=== PATIENT | female | born 2000 | race Caucasian/White ===

== ENCOUNTER 2019-02-10 10:21 | Outpatient (CLI) | payer OTHER ==
[2019-02-10 11:55] LABS: ALT 20 U/L (9-52); AST 17 U/L (14-36); African American GFR (CKD) >90 (>60 ml/min/1.73 sqM); Blood Urea Nitrogen 9 mg/dL (7-17); LDH 506 U/L (313-618); Uric Acid 4.8 mg/dL (3.7-7.4)
[2019-02-10 11:57] LABS: Basophils % (A) 0 %; Eosinophils # (A) 0.1 k/uL (0-0.7); Eosinophils % (A) 1 %; HGB 11.7 gm/dL (11.4-16.0); Lymphocytes # (A) 1.5 k/uL (1.0-4.8); Lymphocytes % (A) 14 %; MCH 30.7 pg (25.0-35.0); MCHC 35.4 g/dL (31.0-37.0); MCV 86.8 fL (80.0-100.0); Mean Platelet Volume 8.2; Monocytes # (A) 0.3 k/uL (0-1.0); Monocytes % (A) 3 %; Neutrophils # (A) 8.9 k/uL (1.3-7.7); Neutrophils % (A) 82 %; Platelet Count 228 k/uL (150-450); RDW 15.2 % (11.5-15.5); WBC 10.9 k/uL (4.0-11.0)
[2019-02-10 11:59] LABS: Appearance,Urine Clear (Clear); Bilirubin,Urine Negative (Negative); Blood,Urine Negative (Negative); Color,Urine Light Yellow; Glucose,Urine (UA) Negative (Negative); Ketones,Urine Negative (Negative); Leukocyte Esterase,Urine Negative (Negative); Nitrite,Urine Negative (Negative); Protein,Urine Negative (Negative); Specific Gravity,Urine 1.005 (1.001-1.035); Urobilinogen,Urine <2.0 mg/dL (<2.0)
--- NOTE | 2019-03-10 17:43 | P.MSEPDOC ---
Presenting Problems - Arrival Data Date of Arrival on Unit: 02/10/19 Time of Arrival on Unit: 10:21 Mode of Transport: Ambulatory Disposition - Disposition Discharge Date: 02/10/19 Discharge Time: 12:40 I agree with the RN Medical Screening Exam: No Physician's MSE Comment: There is incomplete nursing documentation on this document and therefore I cannot agree to it. Risk & Benefit of care provided described in d/c instruction: No Diagnosis: RELATED CONDITIONS, UNSP, UNSPECIFIED TRIMESTER
== END 2019-02-10 12:40 | disposition home or self-care (01) ==
LOC: FBPOP 10:21
PROVIDERS: ATTEND Obstetrics & Gynecology
DX: O26.93 Pregnancy related conditions, unspecified, third trimester (principal); Z3A.34 34 weeks gestation of pregnancy
CPT/HCPCS: 59025; 82731; 82570; 84156; 82565; 83615; 84450; 84460; 84520; 84550; 85025; 81003; G0463; 99213

== ENCOUNTER 2019-02-28 12:51 | Inpatient (IN) | payer OTHER ==
[2019-02-28 13:57] VITALS: BMI 36.8
[2019-02-28 14:13] LABS: Appearance,Urine Clear (Clear); Bilirubin,Urine Negative (Negative); Blood,Urine Negative (Negative); Color,Urine Light Yellow; Glucose,Urine (UA) Negative (Negative); Ketones,Urine Negative (Negative); Leukocyte Esterase,Urine Negative (Negative); Nitrite,Urine Negative (Negative); PH, Urine 6.5 (5.0-8.0); Protein,Urine Negative (Negative); Specific Gravity,Urine 1.006 (1.001-1.035); Urobilinogen,Urine <2.0 mg/dL (<2.0)
[2019-02-28 14:15] LABS: Basophils % (A) 0 %; Eosinophils # (A) 0.1 k/uL (0-0.7); Eosinophils % (A) 1 %; HCT 31.7 % (34.0-46.0); HGB 11.4 gm/dL (11.4-16.0); Lymphocytes # (A) 1.1 k/uL (1.0-4.8); Lymphocytes % (A) 12 %; MCH 30.8 pg (25.0-35.0); MCHC 35.9 g/dL (31.0-37.0); Mean Platelet Volume 8.3; Monocytes # (A) 0.3 k/uL (0-1.0); Monocytes % (A) 3 %; Neutrophils # (A) 7.7 k/uL (1.3-7.7); Neutrophils % (A) 83 %; Platelet Count 220 k/uL (150-450); RBC 3.69 m/uL (3.80-5.40); RDW 15.8 % (11.5-15.5); WBC 9.2 k/uL (4.0-11.0)
[2019-02-28 14:23] LABS: ALT 25 U/L (9-52); AST 23 U/L (14-36); African American GFR (CKD) >90 (>60 ml/min/1.73 sqM); Blood Urea Nitrogen 7 mg/dL (7-17); LDH 484 U/L (313-618); Uric Acid 5.3 mg/dL (3.7-7.4)
--- NOTE | 2019-02-28 22:38 | HP ---
HISTORY AND PHYSICAL DATE OF ADMISSION: 02/28/2019 PRINCIPAL DIAGNOSIS: Gestational hypertension. HISTORY OF PRESENT ILLNESS: This 18-year-old G1, P0, at 36 weeks 5 days gestation arrives complaining of fatigue and nonstress test for her preeclampsia. NST was reactive and there were no issues with it. However, her blood pressures have all been mildly elevated. As she is not 37 weeks, a decision to observe her and rule out preeclampsia has been made with the understanding that since she is already scheduled for induction on Thursday, the decision on whether or not to discharge her or keep her will be made once the 24 hour urine is back. Lab studies otherwise were unremarkable for her preeclampsia workup. MMODL / IJN: [id number] /
--- NOTE | 2019-02-28 22:44 | HP ---
HISTORY AND PHYSICAL ADDENDUM: Laboratory studies from her preeclamptic workup have been unremarkable with normal AST, ALT, lactate dehydrogenase. Platelets are also normal and there is no protein in the urine, signifying most likely gestational hypertension. We will plan since she did have an elevated protein creatinine ratio in a previous admission, to continue with 24 hour urine with expectation that she will if all goes well, likely be able to go home tomorrow prior to her induction. However, should she have any change in her symptomatology, indicating more severe complexity to the disease, we will plan induction. PERTINENT PAST MEDICAL HISTORY: Unremarkable. 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 ALLERGIES: None. SOCIAL HISTORY: Unremarkable. FAMILY HISTORY: Noncontributory. In reviewing her records, however, it is noted that she has asthma and a heart murmur that she has not related to any in our interview. PHYSICAL EXAM: Vital signs other than mild elevation of blood pressure, stable. Last blood pressure is 140/94. She has had several blood pressures minimally elevated in the 140/90 range. Heart regular. Lungs clear. Extremities without pain. Abdomen soft. Gravid uterus is noted. A category 1 tracing had been noted earlier and there are rare contractions. Extremities are without pain. ASSESSMENT: Intrauterine at 36 weeks 5 days with gestational hypertension. PLAN: Observational care with 24 hour urine. MMODL / IJN: [id number] /
--- NOTE | 2019-03-01 11:47 | P.PN ---
Progress Note - Text Progress Note Date: 03/01/19 Patient is doing overall well this morning. Her blood pressures remained mildly elevated and a 24-hour urine is still pending. 24 urine will not be up until late this afternoon earlier this evening after does fully run and as she lives over an hour away we'll plan to just keep her tonight with induction in the morning due to continued elevations in blood pressure. All questions are answered for her at this time. On physical exam heart regular, lungs clear, extremities without pain. Abdomen is soft and gravid uterus is noted. Sarah 1 tracings have been reported. Assessment intrauterine [place] 36 weeks 6 days. Gestational hypertension versus preeclampsia. Plan induction in a.m.
[2019-03-02] MEDS ORDERED: TERBUTALINE 1 MG/ML VIAL SQ PRN (01:58)
[2019-03-02] MEDS ORDERED: LIDOCAINE 1% 20 ML VIAL (10MG/ML) FOR IV START INTRADERMA PRN (01:58)
[2019-03-02] MEDS ORDERED: CARBOPROST TROMETHAMINE 250 MCG/ML 1 ML AMP IM PRN (01:58)
[2019-03-02] MEDS ORDERED: OXYTOCIN 30 UNITS/500 ML NS 30 UNIT in SALINE 1 500ML.BAG IV SCH (01:58)
[2019-03-02] MEDS ORDERED: OXYTOCIN 10 UNIT/ML 1 ML VIAL IM PRN (01:58)
[2019-03-02] MEDS ORDERED: METHYLERGONOVINE 0.2 MG/ML 1 ML AMP IM PRN (01:58)
[2019-03-02] MEDS ORDERED: LIDOCAINE 0.5% (PF) 5 MG/ML (50 ML SDV) SQ PRN (01:58)
[2019-03-02] MEDS: LACTATED RINGERS 1,000 ML IV SCH ×2 (05:59→11:13)
[2019-03-02] MEDS ORDERED: BUTORPHANOL 1 MG/ML 1 ML VIAL IV PRN (16:47)
[2019-03-02] MEDS ORDERED: BENZOCAINE/MENTHOL SPRAY 1 GM/SPRAY AEROSOL TOPICAL PRN (17:06)
[2019-03-02] MEDS ORDERED: LANOLIN CREAM 5 GM TUBE TOPICAL PRN (17:06)
[2019-03-02] MEDS ORDERED: WITCH HAZEL 1 EACH MED..PAD TOPICAL PRN (17:06)
[2019-03-02] MEDS ORDERED: diphenhydrAMINE 50 MG/ML 1 ML VIAL IVP PRN ×2 (17:06)
[2019-03-02] MEDS ORDERED: diphenhydrAMINE 50 MG CAP PO PRN (17:06)
[2019-03-02] MEDS ORDERED: SIMETHICONE 80 MG CHEWABLE PO PRN (17:06)
[2019-03-02] MEDS ORDERED: ZOLPIDEM 5 MG TAB PO PRN (17:06)
[2019-03-02] MEDS ORDERED: HYDROCORTISONE 2.5% RECTAL CREAM 30 GM TUBE RECTAL PRN (17:06)
[2019-03-02] MEDS ORDERED: OXYTOCIN 20 UNITS/1000 ML NS 1,000 ML IV SCH (17:06)
[2019-03-02] MEDS ORDERED: diphenhydrAMINE 25 MG CAP PO PRN (17:06)
[2019-03-02] MEDS ORDERED: MEASLES-MUMPS-RUBELLA VACC/PF 12,500 UNIT/0.5 ML VIAL SQ ONE (17:06)
[2019-03-02] MEDS: IBUPROFEN 600 MG TAB PO PRN ×2 (17:36→23:48)
[2019-03-02] MEDS: SENNOSIDES-DOCUSATE SODIUM 1 EACH TAB PO SCH ×2 (20:15→20:43)
[2019-03-02] MEDS: ACETAMINOPHEN TAB 325 MG TAB PO PRN (20:44)
[2019-03-02 20:49] LABS: Basophils % (A) 0 %; Eosinophils % (A) 0 %; HCT 27.3 % (34.0-46.0); Lymphocytes # (A) 0.8 k/uL (1.0-4.8); Lymphocytes % (A) 4 %; MCH 30.2 pg (25.0-35.0); MCHC 34.7 g/dL (31.0-37.0); Mean Platelet Volume 8.5; Monocytes # (A) 0.5 k/uL (0-1.0); Monocytes % (A) 3 %; Neutrophils # (A) 15.9 k/uL (1.3-7.7); Neutrophils % (A) 92 %; Platelet Count 237 k/uL (150-450); RBC 3.13 m/uL (3.80-5.40); RDW 14.8 % (11.5-15.5); WBC 17.3 k/uL (4.0-11.0)
[2019-03-02 21:05] LABS: HGB 9.4 gm/dL (11.4-16.0)
[2019-03-03] MEDS: ACETAMINOPHEN TAB 325 MG TAB PO PRN ×3 (03:15→18:14)
--- NOTE | 2019-03-03 07:14 | LDN ---
LABOR AND DELIVERY NOTE VAGINAL DELIVERY NOTE: DATE OF DELIVERY: 03/02/2019. The patient progressed to complete dilation after oxytocin induction of labor and artificial rupture of membranes with clear fluid noted. She did not require any pain medication during her delivery or her labor. Once reaching complete dilation, she began pushing. She pushed for a short while and brought head to a crown. With 1 further push, the infant's head delivered across the perineum followed by the anterior shoulder. Nose and mouth were bulb suctioned at the perineum. With one further push, the remainder of the easily delivered and was placed on mother's abdomen. Cord was clamped and cut and infant was taken to warmer for evaluation. A viable female was noted with scores of 9 at 1 minute and 9 at 5 minutes and infant weight was noted to be 7 pounds 4.8 ounces. Placenta delivered shortly thereafter, intact, with a three-vessel cord. Uterus initially did not contract well after oxytocin was given and uterine massage was carried out. A gloved hand was placed within the intrauterine cavity and no further blood clot or placental tissue was palpated. A right-angled speculum was then placed in the vagina to visualize where the bleeding was coming from. It appeared that she did have a left vaginal sulcus laceration that was noted to be pumping up near the cervical area. With assistance from nursing staff for retraction, and using suction from the wall, we were able to visualize the area and I was able to stitch this using 2-0 Vicryl suture in a running locked fashion. Once this was completely hemostatic, the remainder of the perineum was inspected and there was a small first-degree perineal laceration. This area was anesthetized with 1% lidocaine and sutured with 3-0 Vicryl suture in a running locked fashion. Total estimated blood loss was approximately 1000 mL. All sponge counts were correct. All needle counts were correct. The patient is in stable condition after delivery. She will be watched closely for any signs of dizziness, shortness of breath, or lightheadedness. She is advised to let us know if she does start to experience any of these symptoms. Will recheck CBC in the a.m. Will monitor closely. The patient was induced for preeclampsia. Her blood pressures have been stable throughout the day. She has not required any medication for severe blood pressures. MMODL / IJN: [id number] /
[2019-03-03 07:36] LABS: Basophils % (A) 0 %; Eosinophils % (A) 0 %; Lymphocytes # (A) 1.4 k/uL (1.0-4.8); Lymphocytes % (A) 14 %; MCH 29.9 pg (25.0-35.0); MCHC 34.8 g/dL (31.0-37.0); MCV 85.9 fL (80.0-100.0); Monocytes # (A) 0.6 k/uL (0-1.0); Monocytes % (A) 5 %; Neutrophils # (A) 8.3 k/uL (1.3-7.7); Neutrophils % (A) 79 %; Platelet Count 196 k/uL (150-450); RBC 2.56 m/uL (3.80-5.40); RDW 13.8 % (11.5-15.5); WBC 10.4 k/uL (4.0-11.0)
[2019-03-03 07:45] LABS: HGB 7.6 gm/dL (11.4-16.0)
[2019-03-03] MEDS: IBUPROFEN 600 MG TAB PO PRN ×3 (09:03→21:38)
[2019-03-03] MEDS: SENNOSIDES-DOCUSATE SODIUM 1 EACH TAB PO SCH ×2 (09:04→21:38)
--- NOTE | 2019-03-03 09:19 | P.PNOBGVD ---
Subjective - Subjective Principal diagnosis: Status post vaginal delivery day #1 Interval history: Patient is doing better today than she was last night. She denies any dizziness or lightheadedness this morning. She has sore on her bottom and does feel swollen on her labia. She also complains of some tailbone pressure. Lochia is decreasing. Her pain is fairly well controlled with ibuprofen. Patient reports: Reports appetite normal, Reports voiding normally, Reports pain well controlled, Reports ambulating normally : doing well, nursing well Objective - Latest Vital Signs Latest vital signs: Vital Signs Temp Pulse Resp BP Pulse Ox 03/03/19 08:42 98.2 F 91 16 130/70 99 03/03/19 03:51 99.0 F 98 16 132/74 99 03/03/19 00:00 99.7 F H 129 H 18 128/79 98 03/02/19 20:30 116 H 16 134/79 99 03/02/19 20:00 97.6 F 128 H 16 133/82 98 03/02/19 19:00 129 H 16 115/59 03/02/19 18:30 113 H 16 113/55 03/02/19 18:00 116 H 16 119/58 03/02/19 17:45 97.9 F 126 H 16 116/60 03/02/19 17:30 136 H 16 117/55 03/02/19 17:15 146 H 16 125/91 97 03/02/19 17:00 97.8 F 144 H 16 129/86 97 Intake and Output 03/02/19 03/03/19 03/03/19 22:59 06:59 14:59 Output Total 1999 950 Balance -2000 -950 Output: Urine 950 Estimated Blood Loss 2000 Other: # Voids 1 - Exam Abdomen: Present: normal appearance, soft. Absent: distention, tenderness Uterus: Present: normal, firm. Absent: tenderness Comments: Left vulva is slightly swollen but soft. Mild tenderness is noted near her tailbone. - Labs Labs: Abnormal Lab Results - Last 24 Hours (Table) 03/02/19 03/03/19 Range/Units 20:20 06:26 WBC 17.3 H (4.0-11.0) k/uL RBC 3.13 L 2.56 L (3.80-5.40) m/uL Hgb 9.4 L D 7.6 L D (11.4-16.0) gm/dL Hct 27.3 L 22.0 L (34.0-46.0) % Neutrophils # 15.9 H 8.3 H (1.3-7.7) k/uL Lymphocytes # 0.8 L (1.0-4.8) k/uL
--- NOTE | 2019-03-03 09:42 | P.MSEPDOC ---
Presenting Problems - Arrival Data Date of Arrival on Unit: 02/28/19 Time of Arrival on Unit: 13:25 Mode of Transport: Ambulatory - Complaint OB-Reason for Admission/Chief Complaint: NST Medical History - Information : 1 Para: 0 Term: 0 : 0 Abortions: Spontaneous or Elective: 0 Number of Living Children: 0 - Gestational Age Gestational Age by SUZI (wks/days): 37 Weeks and 1 Days - History Comment: here for PI Review of Systems - Review of Systems Constitutional: No problems Breast: No problems ENT: No problems Cardiovascular: No problems Respiratory: No problems Gastrointestinal: No problems Genitourinary: No problems Musculoskeletal: No problems Neurological: No problems Skin: No problems Vital Signs - Temperature Temperature: 98.2 F Temperature Source: Oral - Pulse Brachial Pulse Rate: 91 Pulse Assessment Method: Automatic Cuff - Respirations Respiratory Rate: 16 Oxygen Delivery Method: Room Air O2 Sat by Pulse Oximetry: 99 - Blood Pressure Right Arm Sitting Blood Pressure: 130/70 Blood Pressure Mean: 90 Blood Pressure Source: Automatic Cuff Medical Screen Scoring (Pre) - Cervical Exam Dilation: Exam Deferred Effacement: Exam Deferred Membranes: Intact - Uterine Contractions Frequency: > 5 minutes apart = 1 Duration: N/A Intensity: N/A - Maternal Vital Signs Maternal Temperature: N/A Maternal Blood Pressure: N/A Signs of Preeclampsia: N/A Maternal Respirations: N/A - Maternal Trauma Maternal Trauma: N/A - Assessment - Baby A Baseline FHR: 135 Heart Rate - NICHD Category: Category I (Normal) = 0 NST: Reactive Position: N/A Station: N/A - Total Score - Baby A Total Score - Baby A: 1 - Total Score - Baby B Total Score - Baby B: 1 - Total Score - Baby C Total Score - Baby C: 1 - Level of Risk - Baby A Level of Risk - Baby A: Low (0-5) - Level of Risk - Baby B Level of Risk - Baby B: Low (0-5) - Level of Risk - Baby C Level of Risk - Baby C: Low (0-5) Physician Notification (Pre) - Physician Notified Physician Notified Date: 02/28/19 Physician Notified Time: 13:25 Spoke With: Dr flores - Notification Comment Comment: reported reactive NST, pt here due to mild pre-eclampsia per Dr Stock and bp's. orders received to admit pt for 24hr urine per t.oTommie Flores Disposition - Disposition OB Disposition: Admit, LDRP Suite Discharge Date: 02/28/19 Discharge Time: 13:25 I agree with the RN Medical Screening Exam: Yes Risk & Benefit of care provided described in d/c instruction: Yes Diagnosis: GESTATIONAL HTN W/O SIGNIFICANT PROTEINURIA, THIRD TRIMESTER
[2019-03-04 01:33] VITALS: RESP 18
[2019-03-04 06:46] LABS: Basophils % (A) 0 %; Eosinophils # (A) 0.1 k/uL (0-0.7); Eosinophils % (A) 1 %; HCT 21.5 % (34.0-46.0); HGB 7.6 gm/dL (11.4-16.0); Lymphocytes % (A) 23 %; MCH 30.6 pg (25.0-35.0); MCHC 35.2 g/dL (31.0-37.0); MCV 86.9 fL (80.0-100.0); Mean Platelet Volume 7.4; Monocytes # (A) 0.4 k/uL (0-1.0); Monocytes % (A) 4 %; Neutrophils # (A) 6.3 k/uL (1.3-7.7); Neutrophils % (A) 70 %; Platelet Count 196 k/uL (150-450); RBC 2.47 m/uL (3.80-5.40); RDW 14.3 % (11.5-15.5)
[2019-03-04] MEDS: SENNOSIDES-DOCUSATE SODIUM 1 EACH TAB PO SCH (07:56)
[2019-03-04] MEDS: IBUPROFEN 600 MG TAB PO PRN (07:56)
--- NOTE | 2019-03-04 08:49 | P.DS ---
Providers Date of admission: 02/28/19 13:42 Expected date of discharge: 03/04/19 Attending physician: Shannan Stock Primary care physician: Stated None Hospital Course: This is a 18-year-old female 1 para 0 who initially presented at 36-5/7 weeks with elevated blood pressures for NST. She was admitted and observed overnight and did undergo a 24 hour urine collection which was slightly over 300 mg of protein in 24 hours. Her blood pressures remained in the mild category in the 140s to 150s over 70s to 80s to 90s. She denied any other symptoms. She underwent oxytocin induction of labor on 03/02/2019. She delivered a viable female with scores of 9 at 1 minute and 9 at 5 minutes and weight of 7 pounds 4.8 ounces. She did have a severe left vaginal wall sulcus tear that did cause a significant amount of bleeding after delivery. She had almost 1000 mL of blood loss. Her hemoglobin did drop from 11.4-7.6 but has been stable at 7.6. She is currently asymptomatic and denies any dizziness, shortness of breath, or nausea. She does complain of some tailbone pain and soreness on her vaginal area. She has been using ibuprofen with good results. She is breast-feeding and does have a breast pump. Vital signs are stable. Abdomen is soft with fundus firm and nontender. Extremities show negative Homans. Tailbone is mildly tender more towards the right side. No ecchymosis is visualized. Her left labia does appear less swollen today than yesterday. Impression is status post vaginal delivery day #2. Plan is to discharge home today. She is advised to continue her vitamins and also iron supplements. She is advised to follow up in the office in approximately 1 week for a blood pressure check and follow-up exam. She is advised to call the office if she has any further questions or concerns prior to her appointment time. Procedures: Oxytocin induction of labor Spontaneous vaginal delivery of a viable female infant on 03/02/2019 Patient Condition at Discharge: Stable Plan - Discharge Summary New Discharge Prescriptions: No Action Pnv No.95/Ferrous Fum/Folic AC [ Multivitamin Tablet] 1 tab PO DAILY Discharge Medication List Pnv No.95/Ferrous Fum/Folic AC [ Multivitamin Tablet] 1 tab PO DAILY 02/10/19 [History] Follow up Appointment(s)/Referral(s): Shannan Stock DO [Doctor of Osteopathic Medicine] - 1 Week Activity/Diet/Wound Care/Special Instructions: Instructions 1. Do not begin any exercise program for 3 weeks. 2. Do not resume sexual relations for 3 weeks or longer if uncomfortable. 3. You may take tub baths or showers at any time. 4. You may use tampons if desired after 3 weeks. 5. Keep the area of episiotomy (stitches) clean and dry. 6. If you are not nursing, wear a good fitting, supportive bra during the day and limit fluid intake for at least 1 week to prevent breast engorgement. 7. Call the office, [phone], within the next week to make appointment for your 6 week checkup if it has not already been made. 8. Report any of the following occurrences to the doctor promptly: a. Heavy, excessive bleeding b. Chills, fever c. Burning or frequency of urination d. Pain or redness and breasts if nursing e. Increasing pain or swelling in episiotomy (stitches). In addition to the above instructions, the following additional should be followed: 1. No heavy lifting or straining (exercising) until after 6 week checkup. 2. Keep abdominal incision clean and dry: You may wear a dressing if more comfortable. 3. Make office appointment for 10 days after going home or as instructed by her doctor. Discharge Disposition: HOME SELF-CARE
[2019-03-04 08:58] VITALS: BP 131/74; PULSE 92; TEMP 98
[2019-03-04] MEDS ORDERED: PRENATAL VIT-IRON-FOLIC ACID 1 EACH CAP PO SCH (09:00)
[2019-03-04] MEDS ORDERED: IRON PS CMPLX/VIT B12/FA 1 EACH CAP PO SCH (12:00)
== END 2019-03-04 12:42 | disposition home or self-care (01) | DRG 807 ==
LOC: FBPOP 12:51 → 4FBP 13:42
PROVIDERS: ADMIT Obstetrics & Gynecology; ATTEND Obstetrics & Gynecology
PROC: 10E0XZZ Delivery of Products of Conception, External Approach (ICD-10-PCS; principal; 2019-03-02)
PROC: 0KQM0ZZ Repair Perineum Muscle, Open Approach (ICD-10-PCS; 2019-03-02)
PROC: 10907ZC Drainage of Amniotic Fluid, Therapeutic from Products of Conception, Via Natural or Artificial Opening (ICD-10-PCS; 2019-03-02)
PROC: 3E033VJ Introduction of Other Hormone into Peripheral Vein, Percutaneous Approach (ICD-10-PCS; 2019-03-02)
DX: O14.94 Unspecified pre-eclampsia, complicating childbirth (principal); Z37.0 Single live birth; O13.4 Gestational [pregnancy-induced] hypertension without significant proteinuria, complicating childbirth; O99.52 Diseases of the respiratory system complicating childbirth; O99.42 Diseases of the circulatory system complicating childbirth; O71.4 Obstetric high vaginal laceration alone; J45.909 Unspecified asthma, uncomplicated; R01.1 Cardiac murmur, unspecified; Z3A.36 36 weeks gestation of pregnancy
CPT/HCPCS: 59025; 81003; 81050; 82565; 82570; 83615; 84156; 84450; 84460; 84520; 84550; 85025; 86850; 86900; 86901; 88307; 90707; 99215

== ENCOUNTER 2022-04-08 19:44 | Outpatient (CLI) | payer OTHER ==
[2022-04-18 08:19] VITALS: BP 153/92
--- NOTE | 2022-04-25 08:58 | P.MSEPDOC ---
Presenting Problems - Arrival Data Date of Arrival on Unit: 04/08/22 Time of Arrival on Unit: 19:42 Mode of Transport: Ambulatory - Complaint OB-Reason for Admission/Chief Complaint: Possible Onset of Labor Medical History - Information : 2 Para: 1 Number of Living Children: 1 - Gestational Age Gestational Age by SUZI (wks/days): 36 Weeks and 3 Days Review of Systems - Review of Systems Constitutional: No problems Breast: No problems ENT: No problems Cardiovascular: No problems Respiratory: No problems Gastrointestinal: No problems Genitourinary: No problems Musculoskeletal: No problems Neurological: No problems Skin: No problems Comment: Assessment completed by Shelbi Vickers RN Vital Signs - Blood Pressure Right Arm Supine Blood Pressure: 153/92 Blood Pressure Mean: 112 Blood Pressure Source: Automatic Cuff Medical Screen Scoring - Cervical Exam Dilation (cm): 3 Effacement (%): 70 Station: -2 Membranes: Intact - Uterine Contractions Frequency From (mins): 2 Frequency To (mins): 3 Duration From (seconds): 40 Duration To (seconds): 100 Intensity: Mild Resting: Soft to palpation - Assessment - Baby A Baseline FHR: 130 Heart Rate - NICHD Category: Category I (Normal) NST: Reactive Physician Notification - Physician Notified Physician Notified Date: 04/08/22 Physician Notified Time: 21:12 Physician: Shannan Stock Order Received: Yes - Notification Comment Comment: Discharge to home return if contractions get stronger Maternal Triage Index - Maternal Triage Index Presenting for scheduled procedure w/no complaint: No - Stat/Priority 1 Stat Priority 1: No - Urgent/Priority 2 Urgent Priority 2: No - Prompt/Priority 3 Prompt Priority 3: Yes Criteria Met for Priority 3: 2nd BP 141/87, then 135/79 Disposition - Disposition OB Disposition: Discharge to home Discharge Date: 04/08/22 Discharge Time: 21:23 I agree with the RN Medical Screening Exam: Yes Case reviewed; plan agreed upon as documented in EMR&OBIX.: Yes Diagnosis: FALSE LABOR BEFORE 37 COMPLETED WEEKS OF GEST, THIRD TRI
== END 2022-04-08 21:23 | disposition home or self-care (01) ==
LOC: FBPOP 19:44
PROVIDERS: ATTEND Obstetrics & Gynecology
DX: O47.03 False labor before 37 completed weeks of gestation, third trimester (principal); Z3A.36 36 weeks gestation of pregnancy
CPT/HCPCS: 59025; G0463; 99213

== ENCOUNTER → 2022-04-10 | Outpatient (CLI) | payer OTHER ==
[~2022-04-10] MED LIST: LACTATED RINGERS 1,000 ML IV SCH
[2022-04-10 16:44] LABS: Appearance,Urine Clear (Clear); Bilirubin,Urine Negative (Negative); Blood,Urine Negative (Negative); Color,Urine Light Yellow; Glucose,Urine (UA) Negative (Negative); Ketones,Urine Negative (Negative); Leukocyte Esterase,Urine Negative (Negative); Nitrite,Urine Negative (Negative); Protein,Urine Negative (Negative); Specific Gravity,Urine 1.006 (1.001-1.035); Urobilinogen,Urine <2.0 mg/dL (<2.0)
[2022-04-10 17:36] VITALS: BP 127/68; PULSE 91; RESP 16; TEMP 97
--- NOTE | 2022-04-15 08:55 | P.MSEPDOC ---
Presenting Problems - Arrival Data Date of Arrival on Unit: 04/10/22 Time of Arrival on Unit: 14:20 Mode of Transport: Ambulatory - Complaint OB-Reason for Admission/Chief Complaint: Possible Onset of Labor Medical History - Information : 2 Para: 1 Term: 1 : 0 Abortions: Spontaneous or Elective: 0 Number of Living Children: 1 - Gestational Age Gestational Age by SUZI (wks/days): 35 Weeks and 2 Days Review of Systems - Review of Systems Constitutional: No problems Breast: No problems ENT: No problems Cardiovascular: No problems Respiratory: No problems Gastrointestinal: No problems Genitourinary: No problems Musculoskeletal: No problems Neurological: No problems Skin: No problems Comment: vomiting food. can keep liquids down this pm. contx Vital Signs - Temperature Temperature: 97.0 F Temperature Source: Temporal Artery Scan - Pulse Right Apical Pulse Rate: 91 Pulse Assessment Method: Automatic Cuff - Respirations Respiratory Rate: 16 Oxygen Delivery Method: Room Air - Blood Pressure Right Arm Blood Pressure: 127/68 Blood Pressure Mean: 87 Blood Pressure Source: Automatic Cuff Medical Screen Scoring - Cervical Exam Dilation (cm): 3 Effacement (%): 80 Membranes: Intact - Uterine Contractions Intensity: Mild Resting: Soft to palpation - Assessment - Baby A Baseline FHR: 140 Heart Rate - NICHD Category: Category I (Normal) NST: Reactive Physician Notification - Physician Notified Physician Notified Date: 04/10/22 Physician Notified Time: 15:00 Physician: Shannan Stock Order Received: Yes (discharge after evaluation) Maternal Triage Index - Scheduled/Requesting Priority 5 Scheduled/Requesting Priority 5: Yes Criteria Met for Priority 5: labor check and evaluation for vomiting Disposition - Disposition OB Disposition: Physician follow up in office, Discharge to home, Written follow up instructions reviewed Discharge Date: 04/10/22 Discharge Time: 17:20 I agree with the RN Medical Screening Exam: Yes Case reviewed; plan agreed upon as documented in EMR&OBIX.: Yes Diagnosis: FALSE LABOR BEFORE 37 COMPLETED WEEKS OF GEST, THIRD TRI
== END | disposition home or self-care (01) ==
LOC: FBPOP 14:11
PROVIDERS: ATTEND Obstetrics & Gynecology
DX: R11.0 Nausea (principal)
CPT/HCPCS: 59025; 96366; 96367; 81003; G0463; 99213

== ENCOUNTER 2022-05-03 20:19 | Outpatient (CLI) | payer OTHER ==
[2022-05-04 02:47] VITALS: BP 139/93; PULSE 106; RESP 16; TEMP 96.1
--- NOTE | 2022-05-04 07:40 | P.MSEPDOC ---
Presenting Problems - Arrival Data Date of Arrival on Unit: 05/03/22 Time of Arrival on Unit: 20:19 Mode of Transport: Wheelchair - Complaint OB-Reason for Admission/Chief Complaint: Possible Onset of Labor Comment: pt. present to tirage due to contractions every 5-7 min started about 2 hours ago. pt. rating pain 5/10. Medical History - Information : 2 Para: 1 Term: 1 : 0 Abortions: Spontaneous or Elective: 0 Number of Living Children: 1 - Gestational Age Gestational Age by SUZI (wks/days): 38 Weeks and 5 Days Review of Systems - Review of Systems Constitutional: No problems Breast: No problems ENT: No problems Cardiovascular: No problems Respiratory: No problems Gastrointestinal: No problems Genitourinary: No problems Musculoskeletal: No problems Neurological: No problems Skin: No problems Vital Signs - Temperature Temperature: 96.1 F Temperature Source: Temporal Artery Scan - Pulse Pulse Oximetery Pulse Rate: 106 Pulse Assessment Method: Automatic Cuff - Respirations Respiratory Rate: 16 Oxygen Delivery Method: Room Air O2 Sat by Pulse Oximetry: 99 - Blood Pressure Right Arm Blood Pressure: 139/93 Blood Pressure Mean: 108 Blood Pressure Source: Automatic Cuff Medical Screen Scoring - Cervical Exam Dilation (cm): 5 Effacement (%): 80 Station: -2 Membranes: Intact - Uterine Contractions Frequency From (mins): 5 Frequency To (mins): 6 Duration From (seconds): 50 Duration To (seconds): 80 Intensity: Mild Resting: Soft to palpation - Assessment - Baby A Baseline FHR: 120 Heart Rate - NICHD Category: Category I (Normal) NST: Reactive Physician Notification - Physician Notified Physician Notified Date: 05/04/22 Physician Notified Time: 21:30 Physician: Oumar Dubose New Order Received: Yes - Notification Comment Comment: orders to discharge patient home Maternal Triage Index - Maternal Triage Index Presenting for scheduled procedure w/no complaint: No - Stat/Priority 1 Stat Priority 1: No - Urgent/Priority 2 Urgent Priority 2: No - Prompt/Priority 3 Prompt Priority 3: No - Non-Urgent/Priority 4 Non-Urgent Priority 4: Yes Criteria Met for Priority 4: no cervical change after 2 hours, patient coping well and comfortable, orders to discharge patient home Disposition - Disposition OB Disposition: Discharge to home Discharge Date: 05/03/22 Discharge Time: 22:39 I agree with the RN Medical Screening Exam: Yes Case reviewed; plan agreed upon as documented in EMR&OBIX.: Yes Diagnosis: FALSE LABOR AT OR AFTER 37 COMPLETED WEEKS OF GESTATION (Patient initially presented with complaints of contractions. Cervix remained unchanged despite prolonged observation. I did discuss with the patient about her contractions and she wishes to go home. Patient was given instructions to return if she felt the contractions are stronger and more regular. Is scheduled to be induced this week apparently.)
== END 2022-05-03 22:39 | disposition home or self-care (01) ==
LOC: FBPOP 20:19
PROVIDERS: ATTEND Obstetrics & Gynecology
DX: O47.1 False labor at or after 37 completed weeks of gestation (principal); Z3A.38 38 weeks gestation of pregnancy
CPT/HCPCS: 59025; G0463; 99213

== ENCOUNTER 2022-05-09 05:56 | Inpatient (IN) | payer OTHER ==
--- NOTE | 2022-05-08 19:16 | P.HPOB ---
History of Present Illness H&P Date: 05/08/22 Chief Complaint: Induction of labor This is a 21 y.o. female, 2, para 1, with an estimated date of confinement of 05/13/2022, estimated gestational age of 39-3/7 weeks, who presents for induction of labor. She has been feeling irregular contractions. course has been uncomplicated. She has been on baby ASA due to history of pre-eclampsia with her last . labs: Hepatitis B surface antigen-neg RPR-NR Rubella-immune Blood type-A+ Antibody screen-neg HIV-NR Hemoglobin-12.5 Random glucose-79 1 hr. GTT-103 GBS-neg OB Hx: . History of 1 vaginal delivery at 37 weeks due to preeclampsia. Delivery complicated by large vaginal laceration with subsequent blood loss. [employer] Hx: No history of STDs Social Hx: Single. Works in daycare. Review of Systems Constitutional: Denies chills, Denies fever Eyes: denies blurred vision, denies pain Ears, nose, mouth and throat: Denies headache, Denies sore throat Cardiovascular: Denies chest pain, Denies shortness of breath Respiratory: Denies cough Gastrointestinal: Reports abdominal pain (irregular contractions) Genitourinary: Reports pelvic pain, Reports Musculoskeletal: Reports low back pain Integumentary: Denies pruritus, Denies rash Neurological: Denies numbness, Denies weakness Psychiatric: Denies anxiety, Denies depression Past Medical History Past Medical History: Asthma History of Any Multi-Drug Resistant Organisms: None Reported Past Surgical History: Orthopedic Surgery Additional Past Surgical History / Comment(s): surgery on arm and nose. thyroid surgery Past Anesthesia/Blood Transfusion Reactions: No Reported Reaction Past Psychological History: No Psychological Hx Reported Smoking Status: Never smoker Past Alcohol Use History: None Reported Past Drug Use History: None Reported - Past Family History Father Family Medical History: Cancer, Hypertension Medications and Allergies Home Medications Medication Instructions Recorded Confirmed Type Pnv No.95/Ferrous Fum/Folic AC 1 tab PO DAILY 02/10/19 05/03/22 History [ Multivitamin Tablet] Amoxicillin 2 tab PO TID 05/03/22 05/03/22 History Aspirin 1 tab PO DAILY 05/03/22 05/03/22 History Allergies Allergy/AdvReac Type Severity Reaction Status Date / Time No Known Allergies Allergy Verified 04/10/22 15:36 Exam Osteopathic Statement: *. No significant issues noted on an osteopathic structural exam other than those noted in the History and Physical/Consult. HEENT: within normal limits Heart: regular rate and rhythm Lungs: clear to auscultation bilaterally Abdomen: , non-tender Cervix: 5 cm/80%/-1 heart tones: 140's by doppler Extremities: neg. Yesy's Assessment and Plan (1) 39 weeks gestation of Status: Acute Code(s): Z3A.39 - 39 WEEKS GESTATION OF SNOMED Code(s): 97980715 Plan: Proceed with oxytocin induction of labor. Expectant management. Epidural anesthesia if desired.
[2022-05-09] MEDS ORDERED: TRANEXAMIC ACID IN NACL,ISO-OS 1,000 MG in EMPTY BAG 1 BAG IV PRN (06:05)
[2022-05-09] MEDS ORDERED: miSOPROStoL 200 MCG TAB PO PRN (06:05)
[2022-05-09] MEDS ORDERED: LACTATED RINGERS 1,000 ML IV SCH (06:05)
[2022-05-09] MEDS ORDERED: OXYTOCIN 10 UNIT/ML 1 ML VIAL IM PRN (06:05)
[2022-05-09] MEDS ORDERED: CARBOPROST TROMETHAMINE 250 MCG/ML 1 ML AMP IM PRN (06:05)
[2022-05-09] MEDS ORDERED: LIDOCAINE 0.5% (PF) 5 MG/ML (50 ML SDV) SQ PRN (06:05)
[2022-05-09] MEDS ORDERED: LIDOCAINE 1% (10MG/ML) FOR IV START INTRADERMA PRN (06:05)
[2022-05-09] MEDS ORDERED: OXYTOCIN 30 UNITS/500 ML NS 30 UNIT in SALINE 1 500ML.BAG IV SCH ×2 (06:05→11:35)
[2022-05-09] MEDS ORDERED: METHYLERGONOVINE 0.2 MG/ML 1 ML AMP IM PRN (06:05)
[2022-05-09] MEDS ORDERED: TERBUTALINE 1 MG/ML VIAL SQ PRN (06:05)
[2022-05-09 06:24] LABS: Basophils % (A) 0 %; Eosinophils % (A) 0 %; HCT 32.6 % (34.0-46.0); HGB 11.7 gm/dL (11.4-16.0); Lymphocytes # (A) 1.4 k/uL (1.0-4.8); Lymphocytes % (A) 17 %; MCH 29.9 pg (25.0-35.0); MCHC 35.9 g/dL (31.0-37.0); MCV 83.4 fL (80.0-100.0); Mean Platelet Volume 9.1; Monocytes # (A) 0.3 k/uL (0-1.0); Monocytes % (A) 4 %; Neutrophils # (A) 6.5 k/uL (1.3-7.7); Neutrophils % (A) 78 %; Platelet Count 237 k/uL (150-450); Poikilocytosis Slight; RBC 3.91 m/uL (3.80-5.40); RDW 14.3 % (11.5-15.5); WBC 8.4 k/uL (3.8-10.6)
[2022-05-09] MEDS ORDERED: diphenhydrAMINE 25 MG CAP PO PRN (11:35)
[2022-05-09] MEDS ORDERED: LANOLIN CREAM 5 GM TUBE TOPICAL PRN (11:35)
[2022-05-09] MEDS ORDERED: diphenhydrAMINE 50 MG/ML 1 ML VIAL IVP PRN ×2 (11:35)
[2022-05-09] MEDS ORDERED: PRENATAL VIT-IRON-FOLIC ACID 1 EACH TABLET PO SCH (11:35)
[2022-05-09] MEDS ORDERED: ZOLPIDEM 5 MG TAB PO PRN (11:35)
[2022-05-09] MEDS ORDERED: BENZOCAINE/MENTHOL SPRAY 1 GM/SPRAY AEROSOL TOPICAL PRN (11:35)
[2022-05-09] MEDS ORDERED: SIMETHICONE 80 MG CHEWABLE PO PRN (11:35)
[2022-05-09] MEDS ORDERED: diphenhydrAMINE 50 MG CAP PO PRN (11:35)
[2022-05-09] MEDS ORDERED: HYDROCORTISONE 2.5% RECTAL CREAM 30 GM TUBE RECTAL PRN (11:35)
[2022-05-09] MEDS: IBUPROFEN 600 MG TAB PO PRN ×2 (12:05→18:35)
--- NOTE | 2022-05-09 13:06 | P.PROBDLV ---
Vaginal Delivery Note - . Vaginal Delivery Note: The patient reached complete dilation and then rather precipitously delivered a viable male infant vaginally with a nuchal cord times one doubly clamped and cut and removed around the infant's head with delivery. was placed on mother's abdomen and nose and mouth are bulb suctioned. A viable male is noted with scores of 8 at 1 minute and 9 at 5 minutes and weight of 8 lbs. 2 oz. Placenta delivered shortly thereafter, intact, with a three-vessel cord. Uterus initially did not firm up very well right after delivery but after oxytocin was opened up and Methergine was given bleeding did slow. A gloved hand was also placed within the endometrial cavity and no further placental tissue was palpated. Inspection of the perineum revealed a second-degree perineal laceration. This area was anesthetized with 1% lidocaine and then sutured with 3-0 and 2-0 Vicryl suture in the usual multilayer fashion. Estimated blood loss is approximately 850 mL based on quantitative blood loss. Mother and infant are in stable condition.
[2022-05-09] MEDS: ACETAMINOPHEN TAB 325 MG TAB PO PRN ×2 (16:39→20:05)
[2022-05-09] MEDS: SENNOSIDES-DOCUSATE SODIUM 1 EACH TAB PO SCH (20:48)
[2022-05-10] MEDS: IBUPROFEN 600 MG TAB PO PRN ×3 (00:11→14:37)
[2022-05-10 04:57] VITALS: RESP 14
[2022-05-10 07:50] VITALS: BP 122/79; PULSE 86; TEMP 98
[2022-05-10 07:53] LABS: Basophils % (A) 0 %; Eosinophils % (A) 1 %; HCT 26.2 % (34.0-46.0); Lymphocytes # (A) 1.7 k/uL (1.0-4.8); Lymphocytes % (A) 19 %; MCH 28.9 pg (25.0-35.0); MCHC 33.9 g/dL (31.0-37.0); MCV 85.1 fL (80.0-100.0); Mean Platelet Volume 9.3; Monocytes # (A) 0.3 k/uL (0-1.0); Monocytes % (A) 4 %; Neutrophils # (A) 6.6 k/uL (1.3-7.7); Neutrophils % (A) 75 %; Platelet Count 238 k/uL (150-450); Poikilocytosis Slight; RBC 3.08 m/uL (3.80-5.40); RDW 14.5 % (11.5-15.5); WBC 8.9 k/uL (3.8-10.6)
[2022-05-10 07:55] LABS: HGB 8.9 gm/dL (11.4-16.0)
[2022-05-10] MEDS: SENNOSIDES-DOCUSATE SODIUM 1 EACH TAB PO SCH (10:18)
--- NOTE | 2022-05-10 12:51 | P.DS ---
Providers Date of admission: 05/09/22 05:56 Expected date of discharge: 05/10/22 Attending physician: Shannan Stock Primary care physician: Stated None - Discharge Diagnosis(es) (1) 39 weeks gestation of Current Visit: No Status: Acute Hospital Course: This is a 21-year-old female 2 para 1 at 39-3/7 weeks who presented for induction of labor. She underwent oxytocin induction of labor and delivered vaginally a viable male on 05/09/2022 with scores of 8 at 1 minute and 9 at 5 minutes and infant weight of 8 lbs. 2 oz. She is breast-feeding. Her course has been uncomplicated. Lochia is decreasing. Pain is well-controlled. She denies any dizziness or lightheadedness. Vital signs are stable. Abdomen is soft with fundus firm and nontender. Extremities show negative Homans. Impression is status post vaginal delivery day #1. Plan is to discharge home later today. Routine instructions are given. She is advised follow-up in the office in 6 weeks for a check. She is advised to call the office if she has any further questions or concerns prior to her appointment time. She is advised to continue taking her vitamins. She states she will be okay with [id number] medicines as needed for pain. Procedures: Oxytocin induction of labor Spontaneous vaginal delivery of a viable male infant on 05/09/2022 Patient Condition at Discharge: Stable Plan - Discharge Summary Discharge Rx Participant: No New Discharge Prescriptions: No Action Pnv No.95/Ferrous Fum/Folic AC [ Multivitamin Tablet] 1 tab PO DAILY Discharge Medication List Pnv No.95/Ferrous Fum/Folic AC [ Multivitamin Tablet] 1 tab PO DAILY 02/10/19 [History] Follow up Appointment(s)/Referral(s): Shannan Stock DO [Doctor of Osteopathic Medicine] - 06/26/22 3:45 pm Activity/Diet/Wound Care/Special Instructions: Instructions 1. Do not begin any exercise program for 3 weeks. 2. Do not resume sexual relations for 3 weeks or longer if uncomfortable. 3. You may take tub baths or showers at any time. 4. You may use tampons if desired after 3 weeks. 5. Keep the area of episiotomy (stitches) clean and dry. 6. If you are not nursing, wear a good fitting, supportive bra during the day and limit fluid intake for at least 1 week to prevent breast engorgement. 7. Call the office, [phone], within the next week to make appointment for your 6 week checkup if it has not already been made. 8. Report any of the following occurrences to the doctor promptly: a. Heavy, excessive bleeding b. Chills, fever c. Burning or frequency of urination d. Pain or redness and breasts if nursing e. Increasing pain or swelling in episiotomy (stitches). In addition to the above instructions, the following additional should be followed: 1. No heavy lifting or straining (exercising) until after 6 week checkup. 2. Keep abdominal incision clean and dry: You may wear a dressing if more comfortable. 3. Make office appointment for 10 days after going home or as instructed by her doctor. Discharge Disposition: HOME SELF-CARE
== END 2022-05-10 15:46 | disposition home or self-care (01) | DRG 807 ==
LOC: 4FBP 05:56
PROVIDERS: ADMIT Obstetrics & Gynecology; ATTEND Obstetrics & Gynecology
PROC: 3E033VJ Introduction of Other Hormone into Peripheral Vein, Percutaneous Approach (ICD-10-PCS; principal; 2022-05-09)
PROC: 10907ZC Drainage of Amniotic Fluid, Therapeutic from Products of Conception, Via Natural or Artificial Opening (ICD-10-PCS; principal; 2022-05-09)
PROC: 10E0XZZ Delivery of Products of Conception, External Approach (ICD-10-PCS; principal; 2022-05-09)
PROC: 0KQM0ZZ Repair Perineum Muscle, Open Approach (ICD-10-PCS; principal; 2022-05-09)
DX: O62.3 Precipitate labor (principal); O99.52 Diseases of the respiratory system complicating childbirth; J45.909 Unspecified asthma, uncomplicated; O70.1 Second degree perineal laceration during delivery; O69.81X0 Labor and delivery complicated by cord around neck, without compression, not applicable or unspecified; O75.89 Other specified complications of labor and delivery; Z79.82 Long term (current) use of aspirin; Z87.59 Personal history of other complications of pregnancy, childbirth and the puerperium; Z3A.39 39 weeks gestation of pregnancy; Z37.0 Single live birth
CPT/HCPCS: 85025; 86850; 86900; 86901; 88307

== ENCOUNTER 2022-05-18 11:52 | Emergency (ER) | payer BC, OTHER ==
[2022-05-18 11:59] VITALS: TEMP 98
--- NOTE | 2022-05-18 13:05 | ED ---
General Adult HPI - General Chief complaint: Abdominal Pain Stated complaint: lower right side pain Time Seen by Provider: 05/18/22 12:38 Source: patient Mode of arrival: ambulatory Limitations: no limitations - History of Present Illness Initial comments: Dictation was produced using [employer] dictation software. please excuse any grammatical, word or spelling errors. Chief Complaint: 21-year-old female presents emergency department for right lower quadrant pain History of Present Illness: Patient's 21-year-old female she had a vaginal delivery last week here in our facility. Patient states she was feeling fine until 2 days ago she started having right lower quadrant abdominal pain. She states initially started after she was breast-feeding her newly born son. Patient denies any associated nausea vomiting or fevers. Patient denies any history of appendicitis or appendectomy. She has had some mild vaginal bleeding however stinks expected after vaginal delivery. The ROS documented in this emergency department record has been reviewed and confirmed by me. Those systems with pertinent positive or negative responses h ave been documented in the HPI. All other systems are other negative and/or noncontributory. PHYSICAL EXAM: General Impression: Alert and oriented x3, not in acute distress HEENT: Normocephalic atraumatic, extra-ocular movements intact, pupils equal and reactive to light bilaterally, mucous membranes moist. Cardiovascular: Heart regular rate and rhythm Chest: Able to complete full sentences, no retractions, no tachypnea Abdomen: abdomen soft, tenderness at McBurney's point, no rebound tenderness, non-distended, no organomegaly Musculoskeletal: Pulses present and equal in all extremities, no peripheral edema Motor: no focal deficits noted Neurological: CN II-XII grossly intact, no focal motor or sensory deficits noted Skin: Intact with no visualized rashes Psych: Normal affect and mood ED course: 21-year-old female presents emergency Department with 2 days of right lower quadrant abdominal pain. Patient delivered vaginally here approximately one week ago. Upon arrival are within acceptable limits. Lab return evaluation obtained. CBC, metabolic panel is unremarkable. Urinalys is shows blood and white blood cells likely secondary to recent delivery. Pelvic ultrasound does not show any definitive retained products of conception. Endometrium is mildly thickened although to be expected after recent delivery. Computed tomography scan of the abdomen and pelvis shows no acute processes. Appendix not visualized. Patient does not have a white count or obvious findings to suggest clinical appendicitis. Patient be discharged and advised follow-up with [employer]. - Related Data Home Medications Medication Instructions Recorded Confirmed Pnv No.95/Ferrous Fum/Folic AC 1 tab PO DAILY 02/10/19 05/09/22 [ Multivitamin Tablet] Allergies Allergy/AdvReac Type Severity Reaction Status Date / Time No Known Allergies Allergy Verified 05/18/22 11:59 Review of Systems ROS Statement: Those systems with pertinent positive or pertinent negative responses have been documented in the HPI. ROS Other: All systems not noted in ROS Statement are negative. Past Medical History Past Medical History: Asthma History of Any Multi-Drug Resistant Organisms: None Reported Past Surgical History: Orthopedic Surgery Additional Past Surgical History / Comment(s): surgery on arm and nose. thyroid surgery Past Anesthesia/Blood Transfusion Reactions: No Reported Reaction Past Psychological History: No Psychological Hx Reported Smoking Status: Never smoker Past Alcohol Use History: None Reported Past Drug Use History: None Reported - Past Family History Father Family Medical History: Cancer, Hypertension General Exam Limitations: no limitations Course Vital Signs 05/18/22 11:57 Temperature 98 F Pulse Rate 80 Respiratory 18 Rate Blood Pressure 154/82 O2 Sat by Pulse 100 Oximetry Medical Decision Making - Lab Data Result diagrams: 05/18/22 13:45 05/18/22 13:45 Lab Results 05/18/22 05/18/22 05/18/22 Range/Units 13:45 13:45 13:45 WBC 6.2 (3.8-10.6) k/uL RBC 3.24 L (3.80-5.40) m/uL Hgb 9.5 L (11.4-16.0) gm/dL Hct 27.3 L (34.0-46.0) % MCV 84.1 (80.0-100.0) fL MCH 29.3 (25.0-35.0) pg MCHC 34.9 (31.0-37.0) g/dL RDW 13.3 (11.5-15.5) % Plt Count 358 (150-450) k/uL MPV 8.2 Neutrophils % 73 % Lymphocytes % 22 % Monocytes % 3 % Eosinophils % 1 % Basophils % 0 % Neutrophils # 4.5 (1.3-7.7) k/uL Lymphocytes # 1.4 (1.0-4.8) k/uL Monocytes # 0.2 (0-1.0) k/uL Eosinophils # 0.0 (0-0.7) k/uL Basophils # 0.0 (0-0.2) k/uL Hypochromasia Slight Poikilocytosis Slight Sodium 138 (137-145) mmol/L Potassium 4.1 (3.5-5.1) mmol/L Chloride 109 H (98-107) mmol/L Carbon Dioxide 22 (22-30) mmol/L Anion Gap 7 mmol/L BUN 12 (7-17) mg/dL Creatinine 0.72 (0.52-1.04) mg/dL Est GFR (CKD-EPI)AfAm >90 (>60 ml/min/1.73 sqM) Est GFR (CKD-EPI)NonAf >90 (>60 ml/min/1.73 sqM) Glucose 87 (74-99) mg/dL Calcium 8.8 (8.4-10.2) mg/dL Urine Color Light Yellow Urine Appearance Clear (Clear) Urine pH 7.0 (5.0-8.0) Ur Specific Gratz 1.009 (1.001-1.035) Urine Protein Trace H (Negative) Urine Glucose (UA) Negative (Negative) Urine Ketones Negative (Negative) Urine Blood Large H (Negative) Urine Nitrite Negative (Negative) Urine Bilirubin Negative (Negative) Urine Urobilinogen <2.0 (<2.0) mg/dL Ur Leukocyte Esterase Moderate H (Negative) Urine RBC 35 H (0-5) /hpf Urine WBC 20 H (0-5) /hpf Ur Squamous Epith Cells <1 (0-4) /hpf Urine Bacteria Rare H (None) /hpf Urine Mucus Rare H (None) /hpf Disposition Clinical Impression: Abdominal pain Disposition: HOME SELF-CARE Condition: Good Instructions (If sedation given, give patient instructions): Abdominal Pain ( ED) Is patient prescribed a controlled substance at d/c from ED?: No Referrals: Jeremiah Rudolph MD [Primary Care Provider] - 1-2 days Time of Disposition: 15:43
--- NOTE | 2022-05-18 13:40 | US ---
EXAMINATION TYPE: US pelvic complete plus Dopplers DATE OF EXAM: 05/18/2022 COMPARISON: NONE CLINICAL HISTORY: 21-year-old female abdominal pain, recent vaginal delivery. 1 week, RLQ pain that comes and goes, no fever, still bleeding since TECHNIQUE: TA. Transabdominal sonographic images of the pelvis were acquired. Color Doppler and sp ectral waveform analysis of the ovarian arteries and veins. Date of LMP: 11 months ago FINDINGS: EXAM MEASUREMENTS: Uterus: 12.1 x 8.2 x 7.7 cm Endometrial Stripe: Varying between 4.5 and 6.0 mm. Right Ovary: 2.9 x 1.6 x 1.4 cm Left Ovary: not seen 1. Uterus: Anteverted. Slightly enlarged since recent state, but otherwise within karina l limits 2. Endometrium: thickened endo that is heterogeneous and has vascularity seen, possible retained pro ducts 3. Right Ovary: wnl 4. Left Ovary: not seen due to bowel gas and enlarged UT Spectral, color and waveform doppler imaging shows good arterial and venous flow within the right o vary; there is no evidence for right ovarian torsion. 5. Bilateral Adnexa: wnl 6. Posterior cul-de-sac: wnl IMPRESSION: 1. The uterine cavity is thickened and heterogeneous. There is small amount of vascularity toward the fundal endometrium. Thickening up to 6 mm. Unable to exclude retained products of conception. Correl ation with beta-hCG values. 2. Normal appearance to the right ovary. No sonographic evidence for right ovarian torsion. Unable to visualize the left ovary.
[2022-05-18 13:54] LABS: Basophils % (A) 0 %; Eosinophils % (A) 1 %; HCT 27.3 % (34.0-46.0); HGB 9.5 gm/dL (11.4-16.0); Hypochromasia Slight; Lymphocytes # (A) 1.4 k/uL (1.0-4.8); Lymphocytes % (A) 22 %; MCH 29.3 pg (25.0-35.0); MCHC 34.9 g/dL (31.0-37.0); MCV 84.1 fL (80.0-100.0); Mean Platelet Volume 8.2; Monocytes # (A) 0.2 k/uL (0-1.0); Monocytes % (A) 3 %; Neutrophils # (A) 4.5 k/uL (1.3-7.7); Neutrophils % (A) 73 %; Platelet Count 358 k/uL (150-450); Poikilocytosis Slight; RBC 3.24 m/uL (3.80-5.40); RDW 13.3 % (11.5-15.5); WBC 6.2 k/uL (3.8-10.6)
[2022-05-18 13:59] LABS: Appearance,Urine Clear (Clear); Bacteria,Urine Rare /hpf; Bilirubin,Urine Negative (Negative); Blood,Urine Large (Negative); Color,Urine Light Yellow; Glucose,Urine (UA) Negative (Negative); Ketones,Urine Negative (Negative); Leukocyte Esterase,Urine Moderate (Negative); Mucus,Urine Rare /hpf; Nitrite,Urine Negative (Negative); Protein,Urine Trace (Negative); RBC,Urine 35 /hpf (0-5); Specific Gravity,Urine 1.009 (1.001-1.035); Squamous Epithelial Cell,Urine <1 /hpf (0-4); Urobilinogen,Urine <2.0 mg/dL (<2.0); WBC,Urine 20 /hpf (0-5)
[2022-05-18 14:08] LABS: African American GFR (CKD) >90 (>60 ml/min/1.73 sqM); Anion Gap 7 mmol/L; Blood Urea Nitrogen 12 mg/dL (7-17); Calcium 8.8 mg/dL (8.4-10.2); Carbon Dioxide 22 mmol/L (22-30); Chloride 109 mmol/L (98-107); Glucose 87 mg/dL (74-99); Non-African American GFR(CKD) >90 (>60 ml/min/1.73 sqM); Potassium 4.1 mmol/L (3.5-5.1); Sodium 138 mmol/L (137-145)
--- NOTE | 2022-05-18 15:39 | CT ---
EXAMINATION TYPE: CT abdomen pelvis w con DATE OF EXAM: 05/18/2022 COMPARISON: None HISTORY: Right sided abdominal pain, post x1 week. Vaginal . CT DLP: 1298 mGycm Automated exposure control for dose reduction was used. CONTRAST: Performed with IV Contrast, patient injected with 100ml mL of Isovue 300. Lung bases are clear. No pleural effusion. Heart size is normal. No pericardial effusion. Liver and spleen are intact. Spleen is enlarged and measures 15 cm. No pancreatic mass. The stomach i s intact. The bile ducts are not dilated. There is no adrenal mass. Kidneys show satisfactory contrast opacification. No hydronephrosis. Ureter s are not dilated. No retroperitoneal adenopathy. Uterus is anteverted. Bladder distends smoothly. No free fluid in the pelvis. No pelvic mass. Uterus is enlarged and consistent with recent . The lumbar vertebrae have normal spacing and alignment. Posterior elements are intact. No compression fracture. Bony pelvis is intact. The hip joints are intact. Sacrum and coccyx are intact. Appendix n ot seen. No sign of thickened appendix. No mesenteric edema. No ascites or free air. No sign of a bowel obstruction. IMPRESSION: Splenomegaly. Nonacute abdomen and pelvis.
[2022-05-18 15:49] VITALS: BP 132/80; PULSE 67; RESP 16
== END 2022-05-18 15:56 | disposition home or self-care (01) ==
LOC: EC 11:52
DX: R10.31 Right lower quadrant pain (principal); J45.909 Unspecified asthma, uncomplicated; Z79.899 Other long term (current) drug therapy
CPT/HCPCS: 36415; 80048; 85025; 81001; 87086; 93976; 76856; 74177; 99284; Q9967

== ENCOUNTER 2024-02-04 05:45 | Inpatient (IN) | payer OTHER ==
[2024-02-04] MEDS ORDERED: SODIUM CHLORIDE 0.9% 250 ML BAG ONE (12:02)
[2024-02-04] MEDS ORDERED: fentaNYL (PF) 50 MCG/ML 5 ML AMP ONE (12:02)
[2024-02-04] MEDS ORDERED: ROPIVACAINE 5 MG/ML 30 ML VIAL ONE (12:02)
== END 2024-02-05 18:00 | disposition home or self-care (01) | DRG 560 ==
LOC: 4FBP 05:45
PROVIDERS: ADMIT Obstetrics & Gynecology; ATTEND Obstetrics & Gynecology
PROC: 10E0XZZ Delivery of Products of Conception, External Approach (ICD-10-PCS; principal; 2024-02-04)
PROC: 3E033VJ Introduction of Other Hormone into Peripheral Vein, Percutaneous Approach (ICD-10-PCS; 2024-02-04)
PROC: 10907ZC Drainage of Amniotic Fluid, Therapeutic from Products of Conception, Via Natural or Artificial Opening (ICD-10-PCS; 2024-02-04)
PROC: 0KQM0ZZ Repair Perineum Muscle, Open Approach (ICD-10-PCS; 2024-02-04)
DX: O10.02 Pre-existing essential hypertension complicating childbirth (principal); Z37.0 Single live birth; O66.0 Obstructed labor due to shoulder dystocia; O70.1 Second degree perineal laceration during delivery; Z3A.39 39 weeks gestation of pregnancy